=== PATIENT | female | born 1980 ===

== ENCOUNTER 2020-03-25 10:42 | Emergency (ER) | payer OTHER, SELFPAY ==
--- NOTE | 2020-03-25 11:25 | ED.GENADULT ---
HPI - General Adult General Chief complaint: GI Bleed Stated complaint: blood in stool Time Seen by Provider: 03/25/20 11:10 History of Present Illness HPI narrative: Patient is a 39-year-old female who presents ER with some blood in her stool. Noticed it last night and this morning. It is on the paper and in the toilet. Is a very small amount mixed in with mucus. She reports she was coming onto her cycle and she usually gets constipated. She does not feel that she is constipated recently did not feel like she was overly straining. Has not had issue with rectal bleeding in the past. She is not on any blood thinners. She is not having any abdominal pain. Related Data Allergies Allergy/AdvReac Type Severity Reaction Status Date / Time amoxicillin Allergy Unknown Verified 03/25/20 11:31 Sulfa (Sulfonamide Allergy Hives Verified 03/25/20 11:31 Antibiotics) Review of Systems Review of Systems: All systems reviewed & are unremarkable except as noted in HPI and below Constitutional: Constitutional: Denies chills, Reports fatigue and Denies fever(s) Gastrointestinal: Gastrointestinal: Denies abdominal pain, Denies constipation, Denies diarrhea, Denies nausea and Denies vomiting Comments: Blood in stool Genitourinary: Genitourinary: Denies nocturia and Denies dysuria Comments: Currently menstruating PMFSH Past Medical History Medical History (Updated 03/25/20 @ 11:48 by Joselito Askew MD) Healthy female adult Surgical History Surgical History (Updated 03/25/20 @ 11:38 by Joselito Askew MD) No history of previous surgery Social History Social History (Updated 03/25/20 @ 11:38 by Joselito Askew MD) Smoking status: Never smoker Gender identity (if verbalized by the patient): Female Exam Narrative: Exam Narrative: GENERAL: Well-appearing, well-nourished, and in no acute distress. HEAD: Normocephalic, atraumatic. CHEST: Clear to auscultation. No respiratory distress. HEART: Regular rate and rhythm. Normal peripheral pulses. ABDOMEN: Soft, nontender, nondistended. Rectum: Normal-appearing rectum without hemorrhoids or fissures. EXTREMITIES: Normal range of motion. No edema. NEURO: Alert and oriented x3. PSYCH: Normal mood and affect. Course Course Emergency Course: No orthostasis. Patient's pictures on her phone show that she has very scant bleeding. May be a diverticular bleed and patient reports that her mother has history of diverticulitis. Recommend outpatient colonoscopy. Also recommend stool softeners as she could potentially have a internal hemorrhoid. Vital Signs Vital signs: Vital Signs Temperature 97.6 F 03/25/20 11:26 Pulse Rate 70 03/25/20 11:26 Respiratory Rate 18 03/25/20 11:26 Blood Pressure 124/83 03/25/20 11:26 Pulse Oximetry 100 03/25/20 11:26 Temperature 97.6 F 03/25/20 11:26 Pulse Rate 70 03/25/20 11:36 Respiratory Rate 18 03/25/20 11:26 Blood Pressure 133/90 03/25/20 11:36 Pulse Oximetry 100 03/25/20 11:26 Medical Decision Making Vital Signs Vital Signs: Vital Signs Temperature 97.6 F 03/25/20 11:26 Pulse Rate 70 03/25/20 11:26 Respiratory Rate 18 03/25/20 11:26 Blood Pressure 124/83 03/25/20 11:26 Pulse Oximetry 100 03/25/20 11:26 Temperature 97.6 F 03/25/20 11:26 Pulse Rate 70 03/25/20 11:36 Respiratory Rate 18 03/25/20 11:26 Blood Pressure 133/90 03/25/20 11:36 Pulse Oximetry 100 03/25/20 11:26 Discharge Plan Discharge Clinical Impression: Rectal bleeding Patient Disposition: Home, Self-Care Condition: Stable Instructions: Rectal Bleeding (ED) Additional Instructions: You may have bleeding from a rectal diverticulum or a internal hemorrhoid. Take Colace as a stool softener to prevent any straining. Return the ER if you are feeling the toilet with blood, you have dizziness when going from sitting to standing, or you have other concerns. Contact your PCP
[2020-03-25 11:26] VITALS: BP 124/83; PULSE 70; RESP 18; TEMP 36.4; O2SAT 100
[2020-03-25 11:34] VITALS: BP 118/80; BP 131/86; PULSE 54; PULSE 65
[2020-03-25 11:36] VITALS: BP 133/90; PULSE 70
[2020-03-25 12:20] VITALS: BP 117/83; PULSE 62; RESP 16; O2SAT 100
== END 2020-03-25 12:20 | disposition home or self-care (01) ==
PROVIDERS: Emergency Provider Emergency Medicine; PCP Internal Medicine
DX: K62.5 Hemorrhage of anus and rectum (principal)
CPT/HCPCS: 99283

== ENCOUNTER 2021-03-23 17:21 | Emergency (ER) | payer OTHER, SELFPAY ==
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
[2021-03-23 17:35] VITALS: BP 119/65; PULSE 69; RESP 16; TEMP 36.9; O2SAT 100
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
== END 2021-03-23 18:55 | disposition home or self-care (01) ==
PROVIDERS: Emergency Provider Nurse Practitioner Family; PCP Internal Medicine
DX: R07.81 Pleurodynia (principal); M54.6 Pain in thoracic spine; V49.40XA Driver injured in collision with unspecified motor vehicles in traffic accident, initial encounter
CPT/HCPCS: 71046; 71100; 99213; G0463

== ENCOUNTER → 2021-05-21 15:44 | Outpatient (CLI) | payer OTHER, SELFPAY ==
--- NOTE | ~2021-05-21 | XR_ITS ---
XR_[id number] 05/21/2021 16:17 Indication: Neck pain and right shoulder pain Procedure: 4 view cervical spine Comparison: No prior studies for comparison. Findings: There is straightening of cervical lordosis. No fracture, subluxation or dislocation. Odont oid process within normal limits. Lateral masses are normally aligned. No prevertebral soft tissue sw elling. No significant disc narrowing. Impression: 1: No significant abnormality of the cervical spine. Reviewed, dictated and finalized at location A. EQUIPMENT MAINTENANCE SUPERVISOR Impression: 1: No significant abnormality of the cervical spine.
--- NOTE | ~2021-05-21 | XR_ITS ---
XR shoulder RT min 2V DATE: 05/21/2021 16:17 INDICATION: Right shoulder pain TECHNIQUE: 4 views COMPARISON: None FINDINGS: No fracture or dislocation, periosteal reaction or bone destruction or abnormal soft tissue calcification. IMPRESSION: Negative Reviewed, dictated and finalized at location B. MAKER IMPRESSION: Negative
== END ==
PROVIDERS: PCP Internal Medicine; Visit Provider Internal Medicine
DX: M54.2 Cervicalgia (principal)
CPT/HCPCS: 72040; 73030

== ENCOUNTER → 2021-06-01 17:37 | Outpatient (CLI) | payer OTHER, SELFPAY ==
--- NOTE | ~2021-06-01 | XR_ITS ---
XR shoulder LT min 2V DATE: 06/01/2021 17:54 INDICATION: Left shoulder pain TECHNIQUE: 4 views COMPARISON: None FINDINGS: There is diffuse osteopenia. No fracture, dislocation, periosteal reaction or bone destruct ion or abnormal left shoulder soft tissue calcification. IMPRESSION: Osteopenia Reviewed, dictated and finalized at location A. SKEINS EXAMINER IMPRESSION: Osteopenia
== END ==
PROVIDERS: PCP Internal Medicine; Visit Provider Internal Medicine
DX: M85.812 Other specified disorders of bone density and structure, left shoulder (principal)
CPT/HCPCS: 73030

== ENCOUNTER 2022-02-22 16:52 | Outpatient (CLI) | payer OTHER, BC, SELFPAY ==
--- NOTE | ~2022-02-22 | DEXA_ITS ---
Bone Density Report Name: SOFI QUINONEZ Age: 41 Sex: Female Ethnicity: Black Date of : 1980 Indication: postmenopausal; Referring Provider: MAXINE, LEO Study: Bone densitometry was performed. Exam Date: February 22, 2022 Accession number: [id number] Bone Density: Region BMD T-score Z-score Classification AP Spine(L1-L4) 1.005 -0.4 -1.0 Normal Femoral Neck (Left) 0.854 0.0 -0.5 Normal Total Hip (Left) 1.121 1.5 0.6 Normal Femoral Neck (Right) 0.821 -0.3 -0.7 Normal Total Hip (Right) 1.028 0.7 0.0 Normal Total Hip Mean 1.074 1.1 0.3 Normal World Health Organization criteria for BMD impression classify patients as: Normal (T-score at or above -1.0), Osteopenia (T-score between -1.0 and -2.5), or Osteoporosis (T-score at or below -2.5). 10-year Fracture Risk: FRAX not reported because: All T-scores for Spine Total, Hip Total, Femoral Neck at or above -1.0 Clinical Information Provided by Patient: Has used the following medications: Vitamin D Patient maximum height was 65 Drinks caffeinated beverages Onset of menses at age 13 Number of children 0 Impression: The patient has normal bone mass. Discussion: BONE DENSITY IS ABOVE THE MINIMUM DESIRABLE LEVEL AT ALL SKELETAL SITES TESTED. This patient?s bone mineral density is above the minimum desirable level (T-score -1.0 or better) at all sites measured. The patient should follow a healthful lifestyle (good nutrition with adequate calcium and vitamin D, and appropriate weight-bearing exercise). Follow-Up: Consider repeating this study in 5 years or sooner if there is some new clinical indication. Reported by: ARIEL on 02/22/2022 5:34:00 PM. Reviewed, dictated and finalized at location [facility]
== END 2022-02-22 16:53 | disposition home or self-care (01) ==
LOC: ANHIMG 16:54
PROVIDERS: PCP Internal Medicine; Visit Provider Internal Medicine
DX: M85.80 Other specified disorders of bone density and structure, unspecified site (principal); Z78.0 Asymptomatic menopausal state
CPT/HCPCS: 77080

== ENCOUNTER 2022-07-08 08:06 | Outpatient (CLI) | payer OTHER, BC, SELFPAY ==
--- NOTE | ~2022-07-08 | XR_ITS ---
EXAMINATION: XR shoulder RT min 2V INDICATION: Right shoulder pain TECHNIQUE: Four views of the right shoulder are submitted. COMPARISON: 05/21/2019 FINDINGS: Normal alignment. No fracture. Glenohumeral and acromioclavicular joint spaces are normal. Soft tissues are unremarkable. IMPRESSION: 1. No acute osseous abnormality. Reviewed, dictated and finalized at location B.
--- NOTE | ~2022-07-08 | XR_ITS ---
EXAMINATION: XR shoulder LT min 2V INDICATION: Left shoulder pain TECHNIQUE: Five views of the left shoulder are submitted. COMPARISON: 06/01/2021 FINDINGS: Normal alignment. No fracture. Glenohumeral and acromioclavicular joint spaces are normal. Soft tissues are unremarkable. IMPRESSION: 1. No acute osseous abnormality. Reviewed, dictated and finalized at location B.
--- NOTE | ~2022-07-08 | XR_ITS ---
EXAMINATION: XR hip LT min 2V INDICATION: Left hip pain TECHNIQUE: Two views of the left hip are obtained. COMPARISON: None available FINDINGS: Bone alignment is normal. There is no fracture. There is mild osteoarthritis of the hip. Th e soft tissues are unremarkable. IMPRESSION: 1. Mild osteoarthritis of the hip. Reviewed, dictated and finalized at location B.
== END 2022-07-08 08:07 ==
LOC: MICIMG 08:11
PROVIDERS: PCP Internal Medicine; Visit Provider Internal Medicine
DX: M25.512 Pain in left shoulder (principal); M25.511 Pain in right shoulder; M16.12 Unilateral primary osteoarthritis, left hip
CPT/HCPCS: 73030; 73502

== ENCOUNTER 2023-02-28 18:30 | Emergency (ER) | payer OTHER, BC, SELFPAY ==
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
[2023-02-28 18:44] VITALS: BP 130/86; PULSE 86; RESP 18; TEMP 36.9; O2SAT 100
[2023-02-28 18:47] VITALS: BP 130/86; PULSE 86; RESP 18; TEMP 36.9; O2SAT 86
[2023-02-28 19:08] VITALS: O2SAT 100
== END 2023-02-28 19:08 | disposition home or self-care (01) ==
PROVIDERS: Emergency Provider Nurse Practitioner; PCP Internal Medicine
DX: M54.9 Dorsalgia, unspecified (principal); M54.2 Cervicalgia; V49.9XXA Car occupant (driver) (passenger) injured in unspecified traffic accident, initial encounter
CPT/HCPCS: 99213; G0463

== ENCOUNTER 2023-03-13 16:43 | Outpatient (CLI) | payer OTHER, SELFPAY ==
--- NOTE | ~2023-03-13 | XR_ITS ---
Cervical Spine: AP, lateral, open-mouth views Clinical History: Pain Findings: The normal lordotic curve is maintained. The vertebral bodies and posterior elements appea r intact. The intervertebral disc spaces are well maintained. Pre-vertebral soft tissues are unremar kable. Impression: No significant abnormality is seen. Reviewed, dictated and finalized at [facility]. RESCENT SOLUTION MIXER Impression: No significant abnormality is seen.
--- NOTE | ~2023-03-13 | XR_ITS ---
Lumbosacral Spine: AP and lateral views Clinical History: Pain Findings: The normal lordotic curve is maintained. The vertebral bodies and posterior elements are i ntact. The intervertebral disc spaces are preserved. There is moderate facet arthropathy at L4-L5 an d L5-S1. The sacroiliac joints are normally outlined. Impression: Moderate facet arthropathy at the lower lumbar spine. Reviewed, dictated and finalized at location . [employer] ARTIST Impression: Moderate facet arthropathy at the lower lumbar spine.
== END 2023-03-13 16:44 ==
PROVIDERS: PCP Internal Medicine; Visit Provider Internal Medicine
DX: M54.2 Cervicalgia (principal); M54.50 Low back pain, unspecified
CPT/HCPCS: 72040; 72100

== ENCOUNTER 2023-10-18 16:29 | Outpatient (CLI) | payer OTHER, BC, SELFPAY ==
[2023-10-18 17:14] LABS: Basophils Absolute Auto 0.1 K/mm3 (0.0-0.1); Basophils Percent Auto 0.8 % (0.2-1.2); Eosinophils Absolute Auto 0.2 K/mm3 (0-0.3); Eosinophils Percent Auto 2.9 % (0-4.4); Hematocrit 36.4 % (37.0-47.0); Hemoglobin 12.3 g/dL (12.0-15.0); Immature Granulocyte Absolute 0.01 K/mm3 (0.00-0.031); Immature Granulocyte Percent A 0.1 % (0-0.5); Lymphocytes Absolute Auto 1.96 K/mm3 (0.9-3.2); Lymphocytes Percent Auto 26.7 % (18.3-44.2); Mean Corpuscular HGB Conc 33.8 g/dl (32-36); Mean Corpuscular Hemoglobin 29.9 pg (26-34); Mean Corpuscular Volume 88.6 fl (80-100); Monocytes Absolute Auto 0.5 K/mm3 (0.1-0.6); Monocytes Percent Auto 6.9 % (2.6-8.5); Neutrophils Absolute Auto 4.6 K/mm3 (1.3-6.7); Neutrophils Percent Auto 62.6 % (45.5-73.1); Platelet Count Result 360 k/mm3 (150-375); Red Blood Count 4.11 M/mm3 (4.2-5.4); Red Cell Distribution Width 12.2 % (11.5-14.5); White Blood Count 7.4 K/mm3 (4.5-10.0)
[2023-10-18 17:21] LABS: Alanine Aminotransferase 17 U/L (6-35); Albumin Level 4.2 g/dL (3.5-5.1); Alkaline Phosphatase 85 U/L (38-126); Anion Gap 6 mmol/L (4-12); Aspartate Amino Transferase 23 U/L (14-36); Bilirubin,Total 0.6 mg/dL (0.2-1.3); Blood Urea Nitrogen 11 mg/dL (7-17); Carbon Dioxide 27 mmol/L (22-30); Chloride 103 mmol/L (98-107); Estimated Glomerular Filt Rate > 60; Glucose 91 mg/dL (65-110); Potassium 3.7 mmol/L (3.4-5.0); Sodium 136 mmol/L (137-145)
[2023-10-18 17:44] LABS: Hemoglobin A1C 5.6 % (<5.7)
[2023-10-18 17:52] LABS: Thyroid Stimulating Hormone 0.859 uIU/mL (0.465-4.680)
[2023-10-18 17:59] LABS: Free T4 Free Thyroxine 1.14 ng/mL (0.78-2.19)
[2023-10-19 11:58] LABS: FSH 52.4 mIU/mL
[2023-10-19 12:09] LABS: Triiodothyronine T3 Free 2.9 pg/mL (2.3-4.2)
[2023-10-25 23:59] LABS: Estradiol, Ultrasensitive 28 pg/mL
== END 2023-10-18 16:30 | disposition home or self-care (01) ==
LOC: ANHLAB 16:32
PROVIDERS: PCP Internal Medicine; Visit Provider Obstetrics & Gynecology
DX: N92.6 Irregular menstruation, unspecified (principal)
CPT/HCPCS: 36415; 80053; 82670; 83001; 83036; 84439; 84443; 84481; 85025

== ENCOUNTER 2023-11-02 15:39 | Outpatient (CLI) | payer OTHER, BC, SELFPAY ==
[2023-11-02 17:06] LABS: Carcinoembryonic Antigen 1.6 ng/mL (0.0-3.0)
[2023-11-04 06:58] LABS: CA 19-9 43 U/mL (<34); CA-125 47 U/mL (<35)
== END 2023-11-02 15:40 | disposition home or self-care (01) ==
LOC: ANHLAB 15:44
PROVIDERS: PCP Internal Medicine; Visit Provider Obstetrics & Gynecology
DX: N83.201 Unspecified ovarian cyst, right side (principal); N83.202 Unspecified ovarian cyst, left side
CPT/HCPCS: 36415; 82378; 86301; 86304

== ENCOUNTER 2023-11-14 07:39 | Outpatient (CLI) | payer OTHER, BC, SELFPAY ==
--- NOTE | ~2023-11-14 | CT_ITS ---
EXAMINATION: CT abdomen pelvis w con DATE: 11/14/2023 08:16 INDICATION: Other noninflammatory disorders of ovary. TECHNIQUE: Computed tomography (CT) of the abdomen and pelvis was performed with 100 mL Omnipaque 350 intravenous contrast. Automated exposure control and iterative reconstruction technique were employe d. The dose-length product was 1284.29 mGy-cm. COMPARISON: Ultrasound 11/01/2023 FINDINGS: The visualized portions of the lung bases demonstrate mild atelectasis. No pleural effusion . The heart size is normal. No pericardial effusion. The liver is normal. There are gallstones in the gallbladder which is normal in size. The spleen, pancreas, adrenal glands, and right kidney are norm al. There is a 14 mm cyst in left kidney. There is a 4.1 cm mass in left ovary. There is diverticulos is of the colon without evidence of diverticulitis. There are no dilated loops of bowel. The appendix is normal. There are no pathologically enlarged lymph nodes. There is no ascites. There is mild thor acic and lumbar spondylosis. IMPRESSION: 1. 4.1 cm mass in left ovary with low-level echoes on the prior ultrasound, likely a hemorrhagic cyst . Reviewed, dictated and finalized at location A. IMPRESSION: 1. 4.1 cm mass in left ovary with low-level echoes on the prior ultrasound, lik devon a hemorrhagic cyst.
== END 2023-11-14 07:40 | disposition home or self-care (01) ==
PROVIDERS: PCP Internal Medicine; Visit Provider Obstetrics & Gynecology
DX: N83.8 Other noninflammatory disorders of ovary, fallopian tube and broad ligament (principal); R93.89 Abnormal findings on diagnostic imaging of other specified body structures; R97.8 Other abnormal tumor markers
CPT/HCPCS: 74177; Q9967